=== PATIENT | male | born 1945 | race Caucasian/White ===

== ENCOUNTER → 2016-09-04 | Outpatient (CLI) | payer MEDICARE ==
--- NOTE | 2016-09-04 10:03 | XR ---
EXAMINATION TYPE: XR shoulder complete LT DATE OF EXAM: 09/04/2016 9:04 AM COMPARISON: NONE HISTORY: 71-year-old male complaining of pain in left axillary region after fall Thursday TECHNIQUE: 3 views FINDINGS: There is moderate degenerative joint space narrowing with marginal spurring at the AC joint. The AC j oint remains congruent. Subacromial space is preserved without tendinous or bursal calcifications. No acute fracture or dislocation seen. IMPRESSION: Moderate AC joint osteoarthrosis. No acute osseous abnormality seen.
== END | disposition home or self-care (01) ==
LOC: RADXRMAIN 08:37
PROVIDERS: ATTEND Family Medicine
DX: M19.012 Primary osteoarthritis, left shoulder (principal)

== ENCOUNTER → 2016-11-28 | Outpatient (CLI) | payer MEDICARE ==
[2016-11-28 08:18] LABS: Blood Urea Nitrogen 20 mg/dL (9-20); Non-African American GFR(MDRD) >60 (>60 ml/min/1.73 sqM)
--- NOTE | 2016-11-28 10:04 | CT ---
EXAMINATION TYPE: CT urogram wo/w con DATE OF EXAM: 11/28/2016 9:52 AM COMPARISON: NONE HISTORY: Gross hematuria CT DLP: 2794 mGycm CONTRAST: Performed and with IV Contrast, patient injected with 100 mL of Omnipaque 300. CT Urography was performed with unenhanced followed by enhanced images of the kidneys, ureters and ur inary bladder. Delayed images were obtained. 3d reconstruction was perfromed at a separate work sta tion. FINDINGS: KIDNEYS/BLADDER: No hydronephrosis. No nephrolithiasis. No disctinct renal mass. There is very sub tle nodular thickening involving the anterior wall of the urinary bladder which may be spurious in na ture however consider cystoscopy for further evaluation. LUNG BASES-: No visible nodule. No infiltrate. LIVER/GB: No calcified gallstones. Simple cyst left hepatic lobe measures 2.3 cm. Biliary tree is o f normal caliber. PANCREAS: No inflammation. No distinct mass. SPLEEN: No splenic enlargement. No lesion seen. ADRENALS: No nodule. No thickening. BOWEL: Normal appendix. Normal bowel caliber. No inflammation. GENITAL ORGANS: No gross abnormality. LYMPH NODES: No greater than 1cm abdominal or pelvic lymph nodes are appreciated. AORTA: Nonaneurysmal atheromatous change of the abdominal aorta. OSSEOUS STRUCTURES: Severe degenerative change lumbar spine with areas of vacuum disc and spondylosis . OTHER: No significant additional abnormality is seen. IMPRESSION: 1. very subtle nodular thickening involving the anterior wall of the urinary bladder which may be spu rious in nature however consider cystoscopy for further evaluation.
== END | disposition home or self-care (01) ==
LOC: RADCTMAIN 07:50
PROVIDERS: ATTEND Urology
DX: R31.0 Gross hematuria (principal)
CPT/HCPCS: 82565; 84520; 74178; 36415; 74400; Q9967

== ENCOUNTER 2016-12-31 22:48 | Emergency (ER) | payer MEDICARE ==
[2016-12-31 23:20] VITALS: BP 137/86; PULSE 86; RESP 20; TEMP 98.2
--- NOTE | 2017-01-01 00:31 | ED ---
General Adult HPI - General Chief complaint: Urogenital Stated complaint: Catheter Problems Time Seen by Provider: 01/01/17 00:13 Source: patient, RN notes reviewed Mode of arrival: ambulatory Limitations: no limitations - History of Present Illness Initial comments: 71-year-old man presents to the emergency department with a chief complaint of concern that the bag in which his catheter is connected to is not draining properly. He states that he should back it seemed to be draining better so he was just making sure everything was okay. Patient states that he has not had any abdominal pain. He states he has noticed some blood clots in his back but he states he did have bladder surgery on Thursday and he was informed this would be normal. Patient states that he just wanted to double check to make sure that his catheter wasn't working properly and then he would like to go home. Patient has no pain at this time. He denies any other complaints. Patient denies any recent fever, chills, shortness of breath, chest pain, back pain, abdominal pain, nausea vomiting, numbness or tingling, dysuria or hematuria, constipation or diarrhea, headaches or visual changes, or any other current symptoms. - Related Data Home Medications Medication Instructions Recorded Confirmed Aspirin 81 mg PO DAILY 12/31/16 12/31/16 Glimepiride [Amaryl] 1 mg PO DAILY 12/31/16 12/31/16 L-Thyroxine 112 mg PO DAILY 12/31/16 Losartan [Cozaar] 100 mg PO DAILY 12/31/16 12/31/16 Metoprolol Tartrate [Lopressor] 12.5 mg PO DAILY 12/31/16 12/31/16 Simvastatin [Zocor] 20 mg PO DAILY 12/31/16 12/31/16 Allergies Allergy/AdvReac Type Severity Reaction Status Date / Time Penicillins Allergy Swelling Verified 12/31/16 23:20 Review of Systems ROS Statement: Those systems with pertinent positive or pertinent negative responses have been documented in the HPI. ROS Other: All systems not noted in ROS Statement are negative. Past Medical History Past Medical History: Diabetes Mellitus, Hyperlipidemia, Hypertension, Prostate Disorder, Thyroid Disorder History of Any Multi-Drug Resistant Organisms: None Reported Past Surgical History: Heart Catheterization, Prostate Surgery Additional Past Surgical History / Comment(s): eye surgery Past Psychological History: No Psychological Hx Reported Smoking Status: Never smoker Past Alcohol Use History: None Reported Past Drug Use History: None Reported General Exam Limitations: no limitations General appearance: alert, in no apparent distress Head exam: Present: atraumatic, normocephalic, normal inspection Respiratory exam: Present: normal lung sounds bilaterally. Absent: respiratory distress, wheezes, rales, rhonchi, stridor Cardiovascular Exam: Present: regular rate, normal rhythm, normal heart sounds. Absent: systolic murmur, diastolic murmur, rubs, gallop, clicks GI/Abdominal exam: Present: soft, normal bowel sounds. Absent: distended, tenderness, guarding, rebound, rigid Neurological exam: Present: alert, oriented X3 Psychiatric exam: Present: normal affect, normal mood Skin exam: Present: warm, dry, intact, normal color. Absent: rash Course Vital Signs 12/31/16 23:17 Temperature 98.2 F Pulse Rate 86 Respiratory 20 Rate Blood Pressure 137/86 O2 Sat by Pulse 97 Oximetry Medical Decision Making - Medical Decision Making 71-year-old male presents for concern about catheter functioning. This time it does appear to be functioning properly. We discussed continuing follow-up with urology and return parameters. Patient's concern was not with the catheter insertion site on the urine it was with the actual bag. This time does appear to be functioning properly. We discussed continued follow-up. Patient is in agreement with the plan. Disposition Clinical Impression: Hematuria Disposition: HOME SELF-CARE Condition: Stable Instructions: Elliott Catheter Placement and Care (ED) Additional Instructions: Please use medication as discussed. Please follow up with family doctor if symptoms have not improved over the next two days. Please return to the emergency room if your symptoms increase or worsen or for any other concerns. Referrals: Gabriele Beck DO [Primary Care Provider] - 1-2 days Time of Disposition: 00:30
== END 2017-01-01 00:45 | disposition home or self-care (01) ==
LOC: EC 22:48
DX: R31.9 Hematuria, unspecified (principal); E11.9 Type 2 diabetes mellitus without complications; E78.5 Hyperlipidemia, unspecified; I10 Essential (primary) hypertension; E07.9 Disorder of thyroid, unspecified; Z79.82 Long term (current) use of aspirin; Z79.84 Long term (current) use of oral hypoglycemic drugs; Z79.899 Other long term (current) drug therapy; Z88.0 Allergy status to penicillin; Z98.890 Other specified postprocedural states
CPT/HCPCS: 99283

== ENCOUNTER 2018-12-24 19:38 | Emergency (ER) | payer MEDICARE ==
[2018-12-24 19:52] VITALS: BP 156/79; PULSE 70; RESP 18; TEMP 97.8
[2018-12-24] MEDS ORDERED: SULFAMETH-TMP DS STARTER PACK 2 TAB BTL PO STA (20:07)
[2018-12-24] MEDS ORDERED: SULFAMETHOX-TMP 800-160MG 1 EACH TAB PO STA (20:07)
--- NOTE | 2018-12-24 20:10 | ED ---
Skin/Abscess/FB HPI - General Chief complaint: Extremity Injury, Upper Stated complaint: rt hand animal scratch Time Seen by Provider: 12/24/18 19:57 Source: patient, RN notes reviewed, old records reviewed Mode of arrival: ambulatory Limitations: no limitations - History of Present Illness Initial comments: This is a 73-year-old male the ER for evaluation of animal scratch. Patient was scratched by a dog. No fevers. No significant redness or erythema to patient's hand. Patient denies any significant pain as well as scratch evaluated. No gaping or bleeding noted. Patient states scratch occurred 2 days ago, pain is currently occurring now, he was without pain originally. MD complaint: other (Small puncture wound) -: days(s) (3) Tetanus Up to Date: yes Location: R hand Severity: mild Severity scale (1-10): 1 Quality: aching Consistency: constant Improves with: none Worsens with: none Associated symptoms: denies other symptoms Treatments Prior to Arrival: none - Related Data Home Medications Medication Instructions Recorded Confirmed Aspirin 81 mg PO DAILY 12/31/16 12/31/16 Glimepiride [Amaryl] 1 mg PO DAILY 12/31/16 12/31/16 L-Thyroxine 112 mg PO DAILY 12/31/16 Losartan [Cozaar] 100 mg PO DAILY 12/31/16 12/31/16 Metoprolol Tartrate [Lopressor] 12.5 mg PO DAILY 12/31/16 12/31/16 Simvastatin [Zocor] 20 mg PO DAILY 12/31/16 12/31/16 Previous Rx's Medication Instructions Recorded Sulfamethox-Tmp 800-160Mg [Bactrim 2 tab PO BID #40 tab 12/24/18 DS 800-160 mg] Allergies Allergy/AdvReac Type Severity Reaction Status Date / Time Penicillins Allergy Swelling Verified 07/20/18 11:48 Review of Systems ROS Statement: Those systems with pertinent positive or pertinent negative responses have been documented in the HPI. ROS Other: All systems not noted in ROS Statement are negative. Past Medical History Past Medical History: Diabetes Mellitus, Hyperlipidemia, Hypertension, Prostate Disorder, Thyroid Disorder History of Any Multi-Drug Resistant Organisms: None Reported Past Surgical History: Heart Catheterization, Prostate Surgery Additional Past Surgical History / Comment(s): eye surgery Past Psychological History: No Psychological Hx Reported Smoking Status: Never smoker Past Alcohol Use History: None Reported Past Drug Use History: None Reported General Exam - General Exam Comments Initial Comments: No significant cellulitis noted to hand. Dorsal and volar aspects. No erythema noted, no warmth, patient has full range of motion of all joints Limitations: no limitations General appearance: alert, in no apparent distress Head exam: Present: atraumatic, normocephalic, normal inspection Eye exam: Present: normal appearance, PERRL, EOMI. Absent: scleral icterus, conjunctival injection, periorbital swelling ENT exam: Present: normal exam, mucous membranes moist Neck exam: Present: normal inspection. Absent: tenderness, meningismus, lymphadenopathy Respiratory exam: Present: normal lung sounds bilaterally. Absent: respiratory distress, wheezes, rales, rhonchi, stridor Cardiovascular Exam: Present: regular rate, normal rhythm, normal heart sounds. Absent: systolic murmur, diastolic murmur, rubs, gallop, clicks GI/Abdominal exam: Present: soft, normal bowel sounds. Absent: distended, tenderness, guarding, rebound, rigid Extremities exam: Present: normal inspection, full ROM, normal capillary refill. Absent: tenderness, pedal edema, joint swelling, calf tenderness Back exam: Present: normal inspection Neurological exam: Present: alert, oriented X3, CN II-XII intact Psychiatric exam: Present: normal affect, normal mood Skin exam: Present: warm, dry, intact, normal color. Absent: rash Course Vital Signs 12/24/18 19:49 Temperature 97.8 F Pulse Rate 70 Respiratory 18 Rate Blood Pressure 156/79 O2 Sat by Pulse 98 Oximetry Medical Decision Making - Medical Decision Making 73 male the puncture wound of right hand. This was caused by the patient's dog patient noted penicillin ALLERGY placed on Bactrim no significant sinus infection currently noted. Patient will return if symptoms of swelling and increase or erythema starts to travel up his right arm. Or if he develops fever. Patient agrees and can be discharged home Disposition Clinical Impression: Dog scratch Disposition: HOME SELF-CARE Condition: Good Instructions (If sedation given, give patient instructions): Laceration (ED) Prescriptions: Sulfamethox-Tmp 800-160Mg [Bactrim DS 800-160 mg] 2 tab PO BID #40 tab Is patient prescribed a controlled substance at d/c from ED?: No Referrals: Gabriele Beck DO [Primary Care Provider] - 1-2 days
== END 2018-12-24 20:54 | disposition home or self-care (01) ==
LOC: EC 19:38
DX: S61.431A Puncture wound without foreign body of right hand, initial encounter (principal); E11.9 Type 2 diabetes mellitus without complications; E78.5 Hyperlipidemia, unspecified; I10 Essential (primary) hypertension; E07.9 Disorder of thyroid, unspecified; N42.9 Disorder of prostate, unspecified; Z79.82 Long term (current) use of aspirin; Z79.84 Long term (current) use of oral hypoglycemic drugs; Z79.899 Other long term (current) drug therapy; Z88.0 Allergy status to penicillin; Z95.818 Presence of other cardiac implants and grafts; W54.8XXA Other contact with dog, initial encounter
CPT/HCPCS: 99283

== ENCOUNTER → 2019-02-10 | Outpatient (CLI) | payer MEDICARE ==
--- NOTE | 2019-02-10 09:33 | CT ---
EXAMINATION TYPE: CT chest wo con DATE OF EXAM: 02/10/2019 COMPARISON: CT urogram 11/28/2016 HISTORY: 73-year-old male COPD TECHNIQUE: Contiguous axial scanning of the chest without IV contrast. Coronal and sagittal reconstru ctions performed. CT DLP: 447 mGycm Automated exposure control for dose reduction was used. FINDINGS: Thyroid is enlarged and can be further evaluated with dedicated thyroid ultrasound. Heart normal size without pericardial effusion. Coronary vessel calcifications are present. Ectatic ascending aorta at 3.8 cm with minimal atherosclerotic arch calcifications and bovine configu ration to the aortic arch. Scattered nonenlarged mediastinal lymph nodes. Mild biapical pleural-parenchymal scarring. 4 mm groundglass nodule right upper lobe, axial image 26. 3 mm nodule inferior lingula, axial image 40. Otherwise, no consolidation or pleural effusion. Tiny hiatal hernia. New 1.9 cm hypodense lesion anterior right liver lobe, axial image 56. The previous left hepatic dome cyst measuring 2.1 cm is unchanged. Bones: Mild endplate spondylosis mid to lower thoracic spine. IMPRESSION: 1. ENLARGED THYROID GLAND MAY REPRESENT GOITER. DEDICATED THYROID ULTRASOUND CAN FURTHER ASSESS FOR A [place] UNDERLYING NODULES. 2. A 4 MM GROUNDGLASS NODULE IN THE RIGHT UPPER LOBE AND 3 MM INFERIOR LINGULAR PULMONARY NODULE. SIX -MONTH FOLLOW-UP CT CAN REASSESS. 3. HOWEVER, THERE IS A NEW 1.9 CM HYPODENSE LESION IN THE RIGHT HEPATIC LOBE. METASTATIC DISEASE IS A DIFFERENTIAL CONSIDERATION. DEDICATED CONTRAST-ENHANCED CT OF THE ABDOMEN AND PELVIS RECOMMENDED TO FURTHER EVALUATE.
== END | disposition home or self-care (01) ==
LOC: RADCTMAIN 08:03
PROVIDERS: ATTEND Family Medicine
DX: R91.1 Solitary pulmonary nodule (principal); J44.9 Chronic obstructive pulmonary disease, unspecified
CPT/HCPCS: 71250

== ENCOUNTER 2019-02-12 22:06 | Emergency (ER) | payer MEDICARE ==
[2019-02-12 22:31] LABS: Glucose,Whole Blood 389 mg/dL (75-99)
[2019-02-12] MEDS ORDERED: SODIUM CHLORIDE 0.9% 1,000 ML IV STA (22:56)
[2019-02-12 23:05] LABS: Appearance,Urine Clear (Clear); Bilirubin,Urine Negative (Negative); Blood,Urine Negative (Negative); Color,Urine Light Yellow; Glucose,Urine (UA) 4+ (Negative); Ketones,Urine Negative (Negative); Leukocyte Esterase,Urine Negative (Negative); Nitrite,Urine Negative (Negative); PH, Urine 6.5 (5.0-8.0); Protein,Urine Negative (Negative); Specific Gravity,Urine 1.017 (1.001-1.035); Urobilinogen,Urine <2.0 mg/dL (<2.0)
[2019-02-12 23:06] LABS: Basophils # (A) 0.1 k/uL (0-0.2); Basophils % (A) 1 %; Eosinophils # (A) 0.6 k/uL (0-0.7); Eosinophils % (A) 9 %; HCT 40.8 % (39.0-53.0); HGB 13.3 gm/dL (13.0-17.5); Lymphocytes % (A) 30 %; MCH 29.4 pg (25.0-35.0); MCHC 32.7 g/dL (31.0-37.0); MCV 89.8 fL (80.0-100.0); Mean Platelet Volume 7.4; Monocytes # (A) 0.4 k/uL (0-1.0); Monocytes % (A) 6 %; Neutrophils # (A) 3.7 k/uL (1.3-7.7); Neutrophils % (A) 53 %; Platelet Count 167 k/uL (150-450); RBC 4.54 m/uL (4.30-5.90); RDW 12.8 % (11.5-15.5); WBC 6.9 k/uL (3.8-10.6)
[2019-02-12 23:18] LABS: ALT 19 U/L (21-72); AST 15 U/L (17-59); African American GFR (CKD) 85 (>60 ml/min/1.73 sqM); Albumin 4.4 g/dL (3.5-5.0); Alkaline Phosphatase 102 U/L (38-126); Anion Gap 10 mmol/L; Blood Urea Nitrogen 31 mg/dL (9-20); Calcium 9.9 mg/dL (8.4-10.2); Carbon Dioxide 27 mmol/L (22-30); Chloride 98 mmol/L (98-107); Glucose 392 mg/dL (74-99); Potassium 4.2 mmol/L (3.5-5.1); Sodium 135 mmol/L (137-145); Total Bilirubin 0.4 mg/dL (0.2-1.3); Total Protein 7.1 g/dL (6.3-8.2)
--- NOTE | 2019-02-12 23:27 | XR ---
EXAM: XR Chest, 2 Views CLINICAL HISTORY: ITS.REASON XR Reason: Pain TECHNIQUE: Frontal and lateral views of the chest. COMPARISON: CT of 02/10/19. FINDINGS: Lungs: Nodular density at the right base felt to reflect a nipple shadow. No nodule on CT. No consolidation. Pleural space: Unremarkable. No pneumothorax. Heart: Unremarkable. No cardiomegaly. Mediastinum: Unremarkable. Bones/joints Degenerative changes. IMPRESSION: No evidence of acute pulmonary disease.
[2019-02-13 00:03] LABS: Glucose,Whole Blood 359 mg/dL (75-99)
[2019-02-13] MEDS ORDERED: INSULIN ASPART (NovoLOG) 100 UNIT/ML VIAL SQ ONE (00:13)
--- NOTE | 2019-02-13 01:23 | ED ---
General Adult HPI - General Chief complaint: Recheck/Abnormal Lab/Rx Stated complaint: Hyperglycemia Time Seen by Provider: 02/12/19 22:31 Source: patient, RN notes reviewed, old records reviewed Mode of arrival: ambulatory Limitations: no limitations - History of Present Illness Initial comments: 73-year-old male patient past medical history of type 2 diabetes presents to ED with a symptomatic hypoglycemia. Patient reports that his blood sugar is eleva suellen to 444 has been elevated for a few days. Patient denies any other complaints at this time. Denies any chest pain shortness of breath abdominal pain nausea vomiting diarrhea altered mental status. Systemic: Pt denies fatigue, fever/chills, rash. Pt denies weakness, night sweats, weight loss. Neuro: Pt denies headache, visual disturbances, syncope or pre-syncope. HEENT: Pt denies ocular discharge or irritation, otalgia, rhinorrhea, pharyngitis or notable lymphadenopathy. Cardiopulmonary: Pt denies chest pain, SOB, heart palpitations, dyspnea on exertion. Abdominal/GI: Pt denies abdominal pain, n/v/d. : Pt denies dysuria, burning w/ urination, frequency/urgency. Denies new onset urinary or bowel incontinence. MSK: Pt denies myalgia, loss of strength or function in extremities. Neuro: Pt denies new onset weakness, paresthesias. - Related Data Home Medications Medication Instructions Recorded Confirmed Aspirin 81 mg PO DAILY 12/31/16 02/12/19 Glimepiride [Amaryl] 2 mg PO BID 12/31/16 02/12/19 Losartan [Cozaar] 100 mg PO DAILY 12/31/16 02/12/19 Simvastatin [Zocor] 20 mg PO DAILY 12/31/16 02/12/19 Levothyroxine Sodium [Synthroid] 112 mcg PO DAILY 02/12/19 02/12/19 Metoprolol Tartrate [Lopressor] 12.5 mg PO DAILY@1700 02/12/19 02/12/19 Tamsulosin HCl [Flomax] 0.4 mg PO HS 02/12/19 02/12/19 sitaGLIPtin PHOSPHATE [Januvia] 50 mg PO BID 02/12/19 02/12/19 Allergies Allergy/AdvReac Type Severity Reaction Status Date / Time Penicillins Allergy Swelling Verified 02/12/19 23:01 Review of Systems ROS Statement: Those systems with pertinent positive or pertinent negative responses have been documented in the HPI. ROS Other: All systems not noted in ROS Statement are negative. Past Medical History Past Medical History: Diabetes Mellitus, Hyperlipidemia, Hypertension, Prostate Disorder, Thyroid Disorder Additional Past Medical History / Comment(s): bladder cancer, History of Any Multi-Drug Resistant Organisms: None Reported Past Surgical History: Heart Catheterization, Prostate Surgery Additional Past Surgical History / Comment(s): eye surgery Past Psychological History: No Psychological Hx Reported Smoking Status: Never smoker Past Alcohol Use History: None Reported Past Drug Use History: None Reported General Exam - General Exam Comments Initial Comments: Constitutional: NAD, AOX3, Pt has pleasant affect. HEENT: NC/AT, trachea midline, neck supple, no lymphadenopathy. Posterior pharynx non erythematous, without exudates. External ears appear normal, without discharge. Mucous membranes moist. Eyes PERRLA, EOM intact. There is no scleral icterus. No pallor noted. Cardiopulmonary: RRR, no murmurs, rubs or gallops, no JVD noted. Lungs CTAB in anterior and posterior tang. No peripheral edema. Abdominal exam: Abdomen soft and non-distended. Abdomen non-tender to palpation in all 4 quadrants. Bowel sounds active in LLQ. No hepatosplenomegaly. No ecchymosis Neuro: CN II-XII intact. No nuchal rigidity. No raccon eyes, no mir sign, no hemotympanum. No cervical spinal tenderness. MSK: No posterior calf tenderness bilaterally, homans sign negative bilaterally. Posterior tibialis and radial pulse +2 bilaterally. Sensation intact in upper and lower extremities. Full active ROM in upper and lower extremities, 5/5 stregnth. Limitations: no limitations Course Vital Signs 02/12/19 02/13/19 22:24 01:41 Temperature 98.4 F 98.0 F Pulse Rate 66 57 L Respiratory 17 19 Rate Blood Pressure 145/67 137/99 O2 Sat by Pulse 100 97 Oximetry Medical Decision Making - Medical Decision Making 73-year-old male patient past medical history of type 2 diabetes presents to ED with a symptomatic hypoglycemia. Patient reports that his blood sugar is elevated to 444 has been elevated for a few days. Patient denies any other complaints at this time. Denies any chest pain shortness of breath abdominal pain nausea vomiting diarrhea altered mental status. Patient vital signs stable, afebrile. Physical exam did not display acute pathology. Laboratory investigations revealed an impressive CBC. CMP revealed hyperglycemia of 392. UA revealed +4 glucose. Anion gap 10. Acetone negative. CXR revealed no acute process. Patient administered 1 L normal saline, 6 units subcu insulin blood sugar 282. Patient is asymptomatic. Patient discharged to follow up with primary care provider for further evaluation of blood sugar. Patient will return to ER if condition worsens in anyway. We'll monitor blood sugars. Case discussed with Dr. Atkins. - Lab Data Result diagrams: 02/12/19 22:40 02/12/19 22:40 Lab Results 02/12/19 02/12/19 02/12/19 Range/Units 22:29 22:40 22:40 WBC 6.9 (3.8-10.6) k/uL RBC 4.54 (4.30-5.90) m/uL Hgb 13.3 (13.0-17.5) gm/dL Hct 40.8 (39.0-53.0) % MCV 89.8 (80.0-100.0) fL MCH 29.4 (25.0-35.0) pg MCHC 32.7 (31.0-37.0) g/dL RDW 12.8 (11.5-15.5) % Plt Count 167 (150-450) k/uL Neutrophils % 53 % Lymphocytes % 30 % Monocytes % 6 % Eosinophils % 9 % Basophils % 1 % Neutrophils # 3.7 (1.3-7.7) k/uL Lymphocytes # 2.0 (1.0-4.8) k/uL Monocytes # 0.4 (0-1.0) k/uL Eosinophils # 0.6 (0-0.7) k/uL Basophils # 0.1 (0-0.2) k/uL Sodium 135 L (137-145) mmol/L Potassium 4.2 (3.5-5.1) mmol/L Chloride 98 (98-107) mmol/L Carbon Dioxide 27 (22-30) mmol/L Anion Gap 10 mmol/L BUN 31 H (9-20) mg/dL Creatinine 1.00 (0.66-1.25) mg/dL Est GFR (CKD-EPI)AfAm 85 (>60 ml/min/1.73 sqM) Est GFR (CKD-EPI)NonAf 74 (>60 ml/min/1.73 sqM) Glucose 392 H (74-99) mg/dL POC Glucose (mg/dL) 389 H (75-99) mg/dL POC Glu Dried Fruit Washer ID Tamia Rodriguez Calcium 9.9 (8.4-10.2) mg/dL Total Bilirubin 0.4 (0.2-1.3) mg/dL AST 15 L (17-59) U/L ALT 19 L (21-72) U/L Alkaline Phosphatase 102 (38-126) U/L Total Protein 7.1 (6.3-8.2) g/dL Albumin 4.4 (3.5-5.0) g/dL Urine Color Urine Appearance (Clear) Urine pH (5.0-8.0) Ur Specific [place] (1.001-1.035) Urine Protein (Negative) Urine Glucose (UA) (Negative) Urine Ketones (Negative) Urine Blood (Negative) Urine Nitrite (Negative) Urine Bilirubin (Negative) Urine Urobilinogen (<2.0) mg/dL Ur Leukocyte Esterase (Negative) Acetone, Qual Negative (Negative) 02/12/19 02/12/19 02/13/19 Range/Units 22:40 23:59 01:17 WBC (3.8-10.6) k/uL RBC (4.30-5.90) m/uL Hgb (13.0-17.5) gm/dL Hct (39.0-53.0) % MCV (80.0-100.0) fL MCH (25.0-35.0) pg MCHC (31.0-37.0) g/dL RDW (11.5-15.5) % Plt Count (150-450) k/uL Neutrophils % % Lymphocytes % % Monocytes % % Eosinophils % % Basophils % % Neutrophils # (1.3-7.7) k/uL Lymphocytes # (1.0-4.8) k/uL Monocytes # (0-1.0) k/uL Eosinophils # (0-0.7) k/uL Basophils # (0-0.2) k/uL Sodium (137-145) mmol/L Potassium (3.5-5.1) mmol/L Chloride (98-107) mmol/L Carbon Dioxide (22-30) mmol/L Anion Gap mmol/L BUN (9-20) mg/dL Creatinine (0.66-1.25) mg/dL Est GFR (CKD-EPI)AfAm (>60 ml/min/1.73 sqM) Est GFR (CKD-EPI)NonAf (>60 ml/min/1.73 sqM) Glucose (74-99) mg/dL POC Glucose (mg/dL) 359 H 282 H (75-99) mg/dL POC Glu Dried Fruit Washer ID Kiarra Bartholomew Shamiya, A Calcium (8.4-10.2) mg/dL Total Bilirubin (0.2-1.3) mg/dL AST (17-59) U/L ALT (21-72) U/L Alkaline Phosphatase (38-126) U/L Total Protein (6.3-8.2) g/dL Albumin (3.5-5.0) g/dL Urine Color Light Yellow Urine Appearance Clear (Clear) Urine pH 6.5 (5.0-8.0) Ur Specific [place] 1.017 (1.001-1.035) Urine Protein Negative (Negative) Urine Glucose (UA) 4+ H (Negative) Urine Ketones Negative (Negative) Urine Blood Negative (Negative) Urine Nitrite Negative (Negative) Urine Bilirubin Negative (Negative) Urine Urobilinogen <2.0 (<2.0) mg/dL Ur Leukocyte Esterase Negative (Negative) Acetone, Qual (Negative) Disposition Clinical Impression: Hyperglycemia Disposition: HOME SELF-CARE Condition: Stable Instructions (If sedation given, give patient instructions): Type 2 Diabetes in the Older Adult (ED), Diabetes and Nutrition (ED), Type 2 Diabetes Management for Adults (ED) Is patient prescribed a controlled substance at d/c from ED?: No Referrals: Gabriele Beck DO [Primary Care Provider] - 1-2 days
[2019-02-13 01:29] LABS: Glucose,Whole Blood 282 mg/dL (75-99)
[2019-02-13 01:42] VITALS: BP 137/99; PULSE 57; RESP 19; TEMP 98
== END 2019-02-13 01:42 | disposition home or self-care (01) ==
LOC: EC 22:06
DX: E11.65 Type 2 diabetes mellitus with hyperglycemia (principal); E78.5 Hyperlipidemia, unspecified; I10 Essential (primary) hypertension; E07.9 Disorder of thyroid, unspecified; Z79.82 Long term (current) use of aspirin; Z79.890 Hormone replacement therapy; Z79.899 Other long term (current) drug therapy; Z85.51 Personal history of malignant neoplasm of bladder; Z88.0 Allergy status to penicillin
CPT/HCPCS: 36415; 71046; 80053; 81003; 82009; 85025; 96360; 99285

== ENCOUNTER → 2019-03-01 | Outpatient (CLI) | payer MEDICARE ==
--- NOTE | 2019-03-01 16:04 | CT ---
EXAMINATION TYPE: CT abdomen pelvis w con DATE OF EXAM: 03/01/2019 COMPARISON: CT urogram November 28, 2016. CT chest February 10, 2019. HISTORY: Follow up bladder cancer, recent abnormal CT. CT DLP: 629.8 mGycm, Automated Exposure Control for Dose Reduction was Utilized. CONTRAST: CT scan of the abdomen and pelvis is performed with oral and with IV Contrast, patient injected with 100 mL of Isovue 300. FINDINGS: LUNG BASES: No significant abnormality is appreciated. LIVER/GB: There is stable 2.1 cm thin-walled cyst left hepatic lobe axial image 18. There is however new suspicious ill-defined 1.7 cm anterior segment right hepatic lobe lesion extends axial image 20 w orrisome for metastatic neoplasm. Smaller low dense lesion left hepatic lobe just superior caudate lo be axial image 19 also suspected new from prior. PANCREAS: There is new heterogeneous hypodense mass distal pancreatic body measuring 4.6 x 3.7 cm axi al image 32 causing ductal dilatation in the tail strongly suspicious for obstructing adenocarcinoma. SPLEEN: No significant abnormality is seen. ADRENALS: No significant abnormality is seen. KIDNEYS: Symmetric cortical medullary uptake and excretion from both kidneys without hydronephrosis b ilaterally. Previously visualized lateral wall mass or neoplasm anterior aspect coronal image 56 and axial image 86 series 9 is not clearly seen on current study suggesting successful interval surgical removal BOWEL: Oral contrast reaches level of cecum. No suspicious small or large bowel dilatation. Moderate diffuse colonic fecal prominence noted PROSTATE/SEMINAL VESICLES: No gross abnormality seen. LYMPH NODES: No greater than 1cm abdominal or pelvic lymph nodes are appreciated. OSSEOUS STRUCTURES: Moderate multilevel disc space narrowing at the lower cervical spine with subtle spondylolisthesis L2 on L3 and L4 on L5. OTHER: Moderate calcified plaque of the aorta extends into branch vessels. IMPRESSION: Successful interval treatment of bladder mass or neoplasm. 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
== END | disposition home or self-care (01) ==
LOC: RADCTMAIN 12:20
PROVIDERS: ATTEND Family Medicine
DX: R10.9 Unspecified abdominal pain (principal); R91.1 Solitary pulmonary nodule; C25.9 Malignant neoplasm of pancreas, unspecified; C67.9 Malignant neoplasm of bladder, unspecified; C78.7 Secondary malignant neoplasm of liver and intrahepatic bile duct
CPT/HCPCS: 82565; 84520; 74177; 36415; Q9967

== ENCOUNTER → 2019-03-12 | Outpatient (CLI) | payer MEDICARE | END | disposition home or self-care (01) | LOC: RADPETMAIN 07:11 | PROVIDERS: ATTEND Internal Medicine Hematology & Oncology | DX: Z53.9 Procedure and treatment not carried out, unspecified reason (principal) ==

== ENCOUNTER 2019-04-14 15:29 | Emergency (ER) | payer MEDICARE ==
[2019-04-14] MEDS ORDERED: SODIUM CHLORIDE 0.9% 1,000 ML IV STA (15:52)
--- NOTE | 2019-04-14 16:02 | ED ---
Weakness HPI - General Chief complaint: Weakness Stated complaint: Weakness Time Seen by Provider: 04/14/19 15:32 Source: patient Mode of arrival: EMS Limitations: no limitations - History of Present Illness Initial comments: 73-year-old male patient presents to the emergency department today for evaluation of generalized weakness. Patient states he has been having progressively worsening weakness since February. Patient has history of bladder cancer with mets to the liver and pancreas. Patient states that he has been having frequent falls. Patient did have a fall from bed this morning. He did strike his face and sustained abrasions to the forehead and nose. Patient denies loss of consciousness with this injury. Denies any current headache, cruz rred vision, double vision, nausea, or vomiting. Patient believes that his left side is more weak than the right. States it has been this way since February. Patient states he has persistent abdominal pain at night, states it has been this way since being diagnosed with a liver and pancreatic cancer. Patient is not currently receiving no does the plan to receive chemotherapy or radiation. Denies any hematuria or dysuria but states he does have urinary frequency. Patient denies any recent rash, fever, chills, diarrhea, constipation, back pain, numbness, tingling, or any other complaints. - Related Data Home Medications Medication Instructions Recorded Confirmed Aspirin 81 mg PO DAILY 12/31/16 04/14/19 Losartan [Cozaar] 100 mg PO DAILY 12/31/16 04/14/19 Simvastatin [Zocor] 20 mg PO DAILY 12/31/16 04/14/19 Levothyroxine Sodium [Synthroid] 112 mcg PO DAILY 02/12/19 04/14/19 Metoprolol Tartrate [Lopressor] 12.5 mg PO DAILY@1700 02/12/19 04/14/19 Tamsulosin HCl [Flomax] 0.4 mg PO HS 02/12/19 04/14/19 Insulin Glargine [Lantus] 40 unit SQ DAILY 04/14/19 04/14/19 Allergies Allergy/AdvReac Type Severity Reaction Status Date / Time Penicillins Allergy Swelling Verified 04/14/19 15:39 Review of Systems ROS Statement: Those systems with pertinent positive or pertinent negative responses have been documented in the HPI. ROS Other: All systems not noted in ROS Statement are negative. Past Medical History Past Medical History: Diabetes Mellitus, Hyperlipidemia, Hypertension, Prostate Disorder, Thyroid Disorder Additional Past Medical History / Comment(s): bladder/liver/pancreatic cancer History of Any Multi-Drug Resistant Organisms: None Reported Past Surgical History: Heart Catheterization, Prostate Surgery Additional Past Surgical History / Comment(s): eye surgery Past Psychological History: No Psychological Hx Reported Smoking Status: Never smoker Past Alcohol Use History: None Reported Past Drug Use History: None Reported General Exam Limitations: no limitations General appearance: alert, in no apparent distress, other (This is a well- developed, well-nourished elderly male patient in no acute distress. Vital signs upon presentation are temperature 97.8F, pulse 74, respirations 15, blood pressure 176/109, pulse ox 95% on room air.) Head exam: Present: other (Superficial abrasion noted to the center of the forehead, over the bridge of the nose.) Eye exam: Present: normal appearance, PERRL, EOMI. Absent: scleral icterus, conjunctival injection, nystagmus, periorbital swelling ENT exam: Present: normal exam, normal oropharynx, mucous membranes moist Neck exam: Present: normal inspection, full ROM, other (Nontender, no step-off, no deformity to firm midline palpation of the posterior cervical spine. Full range of motion without pain or limitation.). Absent: tenderness, meningismus, lymphadenopathy Respiratory exam: Present: normal lung sounds bilaterally. Absent: respiratory distress, wheezes, rales, rhonchi, stridor Cardiovascular Exam: Present: regular rate, normal rhythm, normal heart sounds. Absent: systolic murmur, diastolic murmur, rubs, gallop, clicks GI/Abdominal exam: Present: soft, normal bowel sounds. Absent: distended, tenderness, guarding, rebound, rigid Back exam: Present: normal inspection, other (Nontender, no step-off, no deformity to firm midline palpation of the thoracic and lumbar vertebrae. Full range of motion without pain or limitation.). Absent: vertebral tenderness Neurological exam: Present: alert, oriented X3, CN II-XII intact Expanded Speech: Present: fluid speech Cranial nerves: EOM's Intact: Normal, Tongue Deviation: Normal, Nystagmus: Normal Motor strength exam: RUE: 5, LUE: 5, RLE: 5, LLE: 5 Psychiatric exam: Present: normal affect, normal mood Skin exam: Present: warm, dry, intact, normal color. Absent: rash Course Vital Signs 04/14/19 04/14/19 04/14/19 15:31 16:58 18:18 Temperature 97.8 F 98.6 F Pulse Rate 74 75 75 Respiratory 15 14 14 Rate Blood Pressure 176/109 174/89 184/83 O2 Sat by Pulse 95 98 96 Oximetry EKG Findings - EKG Comments: EKG Findings:: EKG obtained at 1547 shows normal sinus rhythm with a ventricular rate of 77, [place] interval 180, QRS duration 86, QT 392, QTc 443. No evidence of ST elevation or depression. Medical Decision Making - Medical Decision Making 73-year-old male patient with past medical history significant for metastatic bladder cancer with metastases to the liver and pancreas presents to the emergency department today for evaluation of increasing generalized weakness. Patient states he is becoming more weak since February. Physical examination is unremarkable. He is neurologically intact with no focal deficits. Labs reviewed and were unremarkable. Normal white blood cell, no evidence for urinary tract infection. CT brain was obtained and shows no acute abdomen abnormality is. Chest x-ray was obtained and shows no acute abnormalities. Patient does have a PET scan tomorrow and an MRI of his back for weakness on the . I did discuss findings and results with the patient. We will discharge home at this time so he is able to keep his appointments for imaging. He is instructed to follow-up with his primary care physician for recheck in 1-2 days. Return parameters discussed in detail. He verbalizes understanding and agrees with this plan. - Lab Data Result diagrams: 04/14/19 15:37 04/14/19 15:37 Lab Results 04/14/19 04/14/19 04/14/19 Range/Units 15:37 15:37 15:37 WBC 9.1 (3.8-10.6) k/uL RBC 4.12 L (4.30-5.90) m/uL Hgb 11.7 L (13.0-17.5) gm/dL Hct 35.5 L (39.0-53.0) % MCV 86.2 (80.0-100.0) fL MCH 28.3 (25.0-35.0) pg MCHC 32.8 (31.0-37.0) g/dL RDW 13.1 (11.5-15.5) % Plt Count 173 (150-450) k/uL Neutrophils % 81 % Lymphocytes % 10 % Monocytes % 5 % Eosinophils % 3 % Basophils % 0 % Neutrophils # 7.4 (1.3-7.7) k/uL Lymphocytes # 0.9 L (1.0-4.8) k/uL Monocytes # 0.5 (0-1.0) k/uL Eosinophils # 0.3 (0-0.7) k/uL Basophils # 0.0 (0-0.2) k/uL PT (9.0-12.0) sec INR (<1.2) APTT (22.0-30.0) sec Sodium 134 L (137-145) mmol/L Potassium 4.1 (3.5-5.1) mmol/L Chloride 97 L (98-107) mmol/L Carbon Dioxide 28 (22-30) mmol/L Anion Gap 9 mmol/L BUN 13 (9-20) mg/dL Creatinine 0.62 L (0.66-1.25) mg/dL Est GFR (CKD-EPI)AfAm >90 (>60 ml/min/1.73 sqM) Est GFR (CKD-EPI)NonAf >90 (>60 ml/min/1.73 sqM) Glucose 214 H (74-99) mg/dL Plasma Lactic Acid [place] 1.3 (0.7-2.0) mmol/L Calcium 9.2 (8.4-10.2) mg/dL Magnesium 1.8 (1.6-2.3) mg/dL Total Bilirubin 0.7 (0.2-1.3) mg/dL AST 21 (17-59) U/L ALT 18 L (21-72) U/L Alkaline Phosphatase 74 (38-126) U/L Troponin I (0.000-0.034) ng/mL Total Protein 6.3 (6.3-8.2) g/dL Albumin 3.5 (3.5-5.0) g/dL Urine Color Urine Appearance (Clear) Urine pH (5.0-8.0) Ur Specific [place] (1.001-1.035) Urine Protein (Negative) Urine Glucose (UA) (Negative) Urine Ketones (Negative) Urine Blood (Negative) Urine Nitrite (Negative) Urine Bilirubin (Negative) Urine Urobilinogen (<2.0) mg/dL Ur Leukocyte Esterase (Negative) 04/14/19 04/14/19 04/14/19 Range/Units 15:37 15:37 15:37 WBC (3.8-10.6) k/uL RBC (4.30-5.90) m/uL Hgb (13.0-17.5) gm/dL Hct (39.0-53.0) % MCV (80.0-100.0) fL MCH (25.0-35.0) pg MCHC (31.0-37.0) g/dL RDW (11.5-15.5) % Plt Count (150-450) k/uL Neutrophils % % Lymphocytes % % Monocytes % % Eosinophils % % Basophils % % Neutrophils # (1.3-7.7) k/uL Lymphocytes # (1.0-4.8) k/uL Monocytes # (0-1.0) k/uL Eosinophils # (0-0.7) k/uL Basophils # (0-0.2) k/uL PT 10.8 (9.0-12.0) sec INR 1.0 (<1.2) APTT 23.7 (22.0-30.0) sec Sodium (137-145) mmol/L Potassium (3.5-5.1) mmol/L Chloride (98-107) mmol/L Carbon Dioxide (22-30) mmol/L Anion Gap mmol/L BUN (9-20) mg/dL Creatinine (0.66-1.25) mg/dL Est GFR (CKD-EPI)AfAm (>60 ml/min/1.73 sqM) Est GFR (CKD-EPI)NonAf (>60 ml/min/1.73 sqM) Glucose (74-99) mg/dL Plasma Lactic Acid Boss[place] (0.7-2.0) mmol/L Calcium (8.4-10.2) mg/dL Magnesium (1.6-2.3) mg/dL Total Bilirubin (0.2-1.3) mg/dL AST (17-59) U/L ALT (21-72) U/L Alkaline Phosphatase (38-126) U/L Troponin I <0.012 (0.000-0.034) ng/mL Total Protein (6.3-8.2) g/dL Albumin (3.5-5.0) g/dL Urine Color Yellow Urine Appearance Clear (Clear) Urine pH 6.5 (5.0-8.0) Ur Specific [place] 1.013 (1.001-1.035) Urine Protein Trace H (Negative) Urine Glucose (UA) 3+ H (Negative) Urine Ketones 2+ H (Negative) Urine Blood Negative (Negative) Urine Nitrite Negative (Negative) Urine Bilirubin Negative (Negative) Urine Urobilinogen <2.0 (<2.0) mg/dL Ur Leukocyte Esterase Negative (Negative) - Radiology Data Radiology results: report reviewed, image reviewed CT of the head is performed without contrast. Report was reviewed in its entirety. Impression by Dr. Nieto shows no acute intracranial hemorrhage or midline shift. There is mild to moderate diffuse age-related cerebral atrophy and chronic small vessel ischemic change noted. Two-view x-ray of the chest is obtained. Report was reviewed in its entirety. Impression by Dr. Nieto shows no suspicious acute pulmonary process. Disposition Clinical Impression: Weakness, Frequent falls Disposition: HOME SELF-CARE Condition: Good Instructions (If sedation given, give patient instructions): Fall Prevention for Older Adults (ED), Weakness (ED) Additional Instructions: Follow-up with your primary care physician for recheck in 1-2 days. Heavier testing completed as you have scheduled over the next few days. Return to the emergency department immediately for any new, worsening, or concerning symptoms. Is patient prescribed a controlled substance at d/c from ED?: No Referrals: Gabriele Beck DO [Primary Care Provider] - 1-2 days Time of Disposition: 17:20
[2019-04-14 16:14] LABS: Appearance,Urine Clear (Clear); Bilirubin,Urine Negative (Negative); Blood,Urine Negative (Negative); Color,Urine Yellow; Glucose,Urine (UA) 3+ (Negative); Leukocyte Esterase,Urine Negative (Negative); Nitrite,Urine Negative (Negative); PH, Urine 6.5 (5.0-8.0); Protein,Urine Trace (Negative); Specific Gravity,Urine 1.013 (1.001-1.035); Urobilinogen,Urine <2.0 mg/dL (<2.0)
[2019-04-14 16:16] LABS: ALT 18 U/L (21-72); AST 21 U/L (17-59); African American GFR (CKD) >90 (>60 ml/min/1.73 sqM); Albumin 3.5 g/dL (3.5-5.0); Alkaline Phosphatase 74 U/L (38-126); Anion Gap 9 mmol/L; Blood Urea Nitrogen 13 mg/dL (9-20); Calcium 9.2 mg/dL (8.4-10.2); Carbon Dioxide 28 mmol/L (22-30); Chloride 97 mmol/L (98-107); Glucose 214 mg/dL (74-99); Magnesium 1.8 mg/dL (1.6-2.3); Partial Thromboplastin Time 23.7 sec (22.0-30.0); Potassium 4.1 mmol/L (3.5-5.1); Prothrombin Time 10.8 sec (9.0-12.0); Sodium 134 mmol/L (137-145); Total Bilirubin 0.7 mg/dL (0.2-1.3); Total Protein 6.3 g/dL (6.3-8.2)
[2019-04-14 16:19] LABS: Ketones,Urine 2+ (Negative)
[2019-04-14 16:21] LABS: Basophils % (A) 0 %; Eosinophils # (A) 0.3 k/uL (0-0.7); Eosinophils % (A) 3 %; HCT 35.5 % (39.0-53.0); HGB 11.7 gm/dL (13.0-17.5); Lymphocytes # (A) 0.9 k/uL (1.0-4.8); Lymphocytes % (A) 10 %; MCH 28.3 pg (25.0-35.0); MCHC 32.8 g/dL (31.0-37.0); MCV 86.2 fL (80.0-100.0); Mean Platelet Volume 7.5; Monocytes # (A) 0.5 k/uL (0-1.0); Monocytes % (A) 5 %; Neutrophils # (A) 7.4 k/uL (1.3-7.7); Neutrophils % (A) 81 %; Platelet Count 173 k/uL (150-450); RBC 4.12 m/uL (4.30-5.90); RDW 13.1 % (11.5-15.5); WBC 9.1 k/uL (3.8-10.6)
--- NOTE | 2019-04-14 16:25 | CT ---
EXAMINATION TYPE: CT brain wo con DATE OF EXAM: 04/14/2019 HISTORY: MULTIPLE FALL INJURIES with headache. CT DLP: 1068.4 mGycm. Automated Exposure Control for Dose Reduction was Utilized. TECHNIQUE: CT scan of the head is performed without contrast. COMPARISON: None. FINDINGS: There is no acute intracranial hemorrhage or midline shift identified. There is diffuse v entricular and sulcal prominence consistent with diffuse age-related cerebral atrophy. There is low- attenuation in the periventricular white matter consistent with chronic small vessel ischemic change. The globes are intact and the visualized sinuses are clear. The calvarium is intact. Vascular reva cification distal internal carotid arteries is present bilaterally. IMPRESSION: No acute intracranial hemorrhage or midline shift. There is [id number] diffuse ag e-related cerebral atrophy and chronic small vessel ischemic change noted.
--- NOTE | 2019-04-14 16:26 | XR ---
EXAMINATION TYPE: XR chest 2V DATE OF EXAM: 04/14/2019 COMPARISON: Chest x-ray February 12, 2019. Chest CT February 10, 2019. HISTORY: Weakness for 2 weeks. TECHNIQUE: Frontal and lateral views of the chest are obtained. FINDINGS: There is no focal air space opacity, pleural effusion, or pneumothorax seen. The cardiac silhouette size remains within normal limits with atherosclerotic change in aortic knob. The osseou s structures are intact. IMPRESSION: No suspicious acute pulmonary process.
[2019-04-14 16:59] VITALS: PULSE 75; RESP 14
[2019-04-14 18:20] VITALS: BP 184/83; TEMP 98.6
== END 2019-04-14 17:25 | disposition home or self-care (01) ==
LOC: EC 15:29
DX: R53.1 Weakness (principal); R29.6 Repeated falls; S00.81XA Abrasion of other part of head, initial encounter; G89.3 Neoplasm related pain (acute) (chronic); E11.9 Type 2 diabetes mellitus without complications; E78.5 Hyperlipidemia, unspecified; I10 Essential (primary) hypertension; E07.9 Disorder of thyroid, unspecified; Z79.82 Long term (current) use of aspirin; Z79.890 Hormone replacement therapy; Z79.4 Long term (current) use of insulin; Z79.899 Other long term (current) drug therapy; Z88.0 Allergy status to penicillin; Z85.51 Personal history of malignant neoplasm of bladder; Z85.07 Personal history of malignant neoplasm of pancreas; Z85.05 Personal history of malignant neoplasm of liver; Z95.5 Presence of coronary angioplasty implant and graft; Z98.890 Other specified postprocedural states; W06.XXXA Fall from bed, initial encounter
CPT/HCPCS: 36415; 70450; 71046; 80053; 81003; 83605; 83735; 84484; 85025; 85610; 85730; 93005; 96360; 99285

== ENCOUNTER → 2019-04-15 | Outpatient (CLI) | payer MEDICARE ==
--- NOTE | 2019-04-20 14:50 | PE ---
EXAMINATION TYPE: PET CT fusion skull to thigh DATE OF EXAM: 04/15/2019 COMPARISON: CT abdomen pelvis dated 02/28/2019 HISTORY: Bladder cancer. No prior radiation. Intravesicular chemotherapy only. Prior CT dated 2018 concerning for pancreatic carcinoma and hepatic metastasis. TECHNIQUE: Following the intravenous administration of 11.465 mCi of F-18 FDG, whole body images are performed from the skull base to the midthigh. Images are reviewed on the computer in the coronal, axial, and sagittal planes. Reconstructed rotating images are created on independent workstation and reviewed on the computer. A localization and attenuation correction CT is performed in conjunction with the PET scan. SCAN: Initial FINDINGS: SKULL BASE AND NECK: There is diffuse hypermetabolic uptake throughout the thyroid gland with a maxi mum SUV of 4.89. Correlation with serum laboratory values is recommended to evaluate for thyroiditis the diffuse uptake. CHEST, MEDIASTINUM, AND HILAR REGION: No suspicious hypermetabolic uptake ABDOMEN AND PELVIS: There is abnormal suspicious uptake within the pancreatic body and periaortic reg ion with mass measuring at least 5.8 x 3.1 cm however greater anterior posterior dimension is thought to be present, ill-defined without contrast. This has a maximum SUV of 5.6. In the right on this on series 3 image 154 there is peripancreatic adenopathy measuring 2.3 x 2.5 cm having a maximum SUV of 3.5. There are enlarging hepatic metastasis. First in the caudate lobe having a maximum dimension of 4.5 x 3.6 cm, previously measuring 1.5 cm, with an SUV of 7.29. The second lesion is within the right hepa tic lobe in segment 8 currently measuring approximately 2.6 x 2.77 mm and previously measuring approx imately 1.0 cm having an SUV of 4.98. There are question small right external iliac chain lymph nodes. There are ill-defined without contra st and abutting vasculature as well as sigmoid colon questionably on series 3 image 224 with a maximu m SUV of 4.69. OSSEOUS STRUCTURES: Slight hypermetabolic activity is seen greatest in the lumbar spine with a maximu m SUV of 2.6 but seen throughout the osseous structures. OTHER CT: Paranasal sinuses and mastoid air cells are well aerated. Degenerative changes of the cervi reva spine are moderate. Mild degenerative changes of the thoracic spine and moderate degenerative george nges of the lumbar spine. Minimal sclerosis of the left sacroiliac joint. No osseous destructive proc ess is seen. Thyroid gland is diffusely enlarged with dystrophic calcification of the right lobe of t he thyroid and inferior isthmus. Ascending thoracic aorta is upper limits of normal measuring 3.8 cm. Mild coronary calcifications. Very small hiatal hernia. Biapical pleural-parenchymal scarring is see n of the lung apices. Lungs are well aerated. No mediastinal adenopathy. Gallbladder is elongated yfn suring 8.2 cm. Moderate degree colonic fecal stasis. Severe atheromatous changes of the abdominal aor ta and its branches. Urinary bladder displays wall thickening but is incompletely distended and subop timally evaluated. Left hepatic lobe cyst is seen without hypermetabolic activity. IMPRESSION: 1. Findings are concerning for primary pancreatic neoplasm with extensive peripancreatic adenopathy a nd enlarging hepatic metastasis (2 masses). 2. Slight hypermetabolic activity of the spine diffusely may relate to bone marrow stimulation prior chemotherapy although intravesicular chemotherapy has been given. No destructive osseous lesion is se en. 3. Diffuse enlargement and uptake throughout the thyroid gland, correlate with serum laboratory value s to evaluate for thyroiditis. 4. Questionable small subcentimeter right external iliac chain lymph nodes that are ill-defined witho ut contrast that had a maximum SUV of 4.69. Ureteral ectasia is a secondary possibility as the ureter is not able to be followed at this location.
== END | disposition home or self-care (01) ==
LOC: RADPETMAIN 15:47
PROVIDERS: ATTEND Internal Medicine Hematology & Oncology
DX: C25.9 Malignant neoplasm of pancreas, unspecified (principal); C78.7 Secondary malignant neoplasm of liver and intrahepatic bile duct; E04.9 Nontoxic goiter, unspecified; C67.8 Malignant neoplasm of overlapping sites of bladder; Z92.21 Personal history of antineoplastic chemotherapy
CPT/HCPCS: 78815; A9552

== ENCOUNTER → 2019-04-16 | Outpatient (CLI) | payer MEDICARE ==
--- NOTE | 2019-04-17 15:43 | MR ---
EXAMINATION TYPE: MR brain and lumbar spine wo/w con DATE OF EXAM: 04/16/2019 COMPARISON: CT brain 04/14/2019, CT abdomen/pelvis 03/01/2019 HISTORY: Recurrent Falls / Back Pain TECHNIQUE: 1. Multiplanar, multisequence images of the brain and brainstem is performed without and with IV cont rast, utilizing 6.5 mL intravenous Gadavist . 2. Multiplanar multisequence images of the lumbar spine is performed without and with IV contrast, ut ilizing 6.5 mL intravenous Gadavist. FINDINGS: MRI Brain: Diffusion weighted images demonstrate no evidence of a recent infarct or other diffusion abnormality. Scattered periventricular and deep cortical white matter areas of increased T2/FLAIR signal, likely representing sequela of chronic microangiopathy. Remote lacunar infarct within the basal ganglia bila terally. Generalized cerebral volume loss. No abnormal enhancement. Appropriate size and morphology of the ventricular system. No extra-axial fluid collections or midlin e shift of structures. Patent basal cisterns. The visualized temporal bone structures and paranasal sinuses demonstrate no gross abnormality. The l enses are surgically absent bilaterally. MR Lumbar Spine: 5 lumbar type vertebral bodies established comparative imaging. Alignment is anatomic. No fracture/st ress fracture. Discogenic endplate changes from L2-S1. There is prominent red bone marrow with island s of sparing, no pathologic replacement is appreciated. No mass lesion. The imaged distal spinal cord and conus medullaris are within normal limits. The conus medullaris ter minates at the L1 level. A level by level analysis is as follows: T12-L1: Small right subarticular zone protrusion without significant mass effect on the thecal sac. P atent neural foramen. L1-L2: Small right subarticular zone protrusion without significant mass effect on the thecal sac. Ne ural foramen are patent. Mild facet arthropathy is present. L2-L3: Posterior disc osteophyte complex flattens the ventral thecal sac. This finding, in conjunctio n with mild facet arthropathy and ligamentum flavum thickening, contribute to mild spinal canal and m ild bilateral neural foraminal stenosis. L3-L4: Posterior disc osteophyte complex flattens the ventral thecal sac. This finding, in conjunctio n with moderate facet arthropathy and ligamentum flavum thickening, contribute to mild spinal canal s tenosis. Mild right and moderate left neural foraminal stenosis also present. L4-L5: Posterior disc osteophyte complex minimally flattens the ventral thecal sac however does not c ontribute to significant spinal canal stenosis. This finding, in conjunction with facet arthropathy a nd ligamentum flavum thickening, does contribute to moderate bilateral neuroforaminal stenosis. L5-S1: Left subarticular zone annular fissure. Small posterior disc osteophyte complex without signif icant mass effect on the thecal sac. This finding, in conjunction with moderate facet arthropathy and ligamentum flavum thickening, contributes to moderate bilateral neural foraminal stenosis. IMPRESSION: 1. No intracranial infarct, hemorrhage, or mass lesion. Senescent changes including cerebral volume l oss and sequela chronic microangiopathy. 2. Multilevel degenerative changes of the lumbar spine detailed above. 3. Prominent red bone marrow without MR evidence of pathologic replacement.
== END | disposition home or self-care (01) ==
LOC: RADMRIMAIN 07:33
PROVIDERS: ATTEND Internal Medicine Hematology & Oncology
DX: M48.061 Spinal stenosis, lumbar region without neurogenic claudication (principal); M51.86 Other intervertebral disc disorders, lumbar region; M51.85 Other intervertebral disc disorders, thoracolumbar region; I67.9 Cerebrovascular disease, unspecified
CPT/HCPCS: 70553; 72158; A9585